=== PATIENT | female | born 1990 | race Caucasian/White ===

== ENCOUNTER 2016-09-02 12:09 | Emergency (ER) | payer MEDICAID ==
[2016-09-02 13:19] LABS: % IMMATURE GRANULYOCYTES 0.3 % (0.0-1.1); ABSOLUTE IMMATURE GRANULOCYTES 0.02 10^3/uL (0.00-0.10); ADD DIFF? NO; ADD MORPH? NO; ADD SCAN? NO; ATYPICAL LYMPHOCYTE FLAG 30 (0-99); FRAGMENT RBC FLAG 30 (0-99); HEMATOCRIT 41.2 % (38.0-47.0); HEMOGLOBIN 14.1 g/dL (12.6-16.3); LEFT SHIFT FLG 0 (0-99); LIPEMIA HEMOLYSIS FLAG 90 (0-99); MEAN CELL HEMOGLOBIN 30.1 pg (27.9-34.1); MEAN CELL HEMOGLOBIN CONCENTR. 34.2 g/dL (32.4-36.7); MEAN PLATELET VOLUME 10.6 fL (8.7-11.7); PLATELET CLUMPS FLAG 20 (0-99); PLATELET COUNT 248 10^3/uL (150-400); RED BLOOD CELL COUNT 4.68 10^6/uL (4.18-5.33); RED CELL DISTRIBUTION WIDTH 12.5 % (11.5-15.2)
[2016-09-02 13:38] LABS: ANION GAP 14 mEq/L (8-16); CALCIUM 10.3 mg/dL (8.5-10.4); CARBON DIOXIDE 19 mEq/l (22-31); CHLORIDE 105 mEq/L (97-110); CREATININE 0.7 mg/dL (0.6-1.0); GLOMERULAR FILTRATION RATE > 60; GLUCOSE 91 mg/dL (70-100); POTASSIUM 4.2 mEq/L (3.5-5.2); SODIUM 138 mEq/L (134-144)
[2016-09-02 14:10] LABS: COLOR RED; LEUKOCYTE ESTERASE,URINE NEGATIVE (NEGATIVE); NITRITE,URINE NEGATIVE (NEGATIVE)
[2016-09-02 14:25] VITALS: RESP 16; O2SAT 100
[2016-09-02 14:25] LABS: RBC,URINE 50-182 /hpf (0-3); WBC,URINE 50-182 /hpf (0-3)
--- NOTE | 2016-09-02 15:05 | EDPHY ---
H & P Stated Complaint: Spotting today;LMP 07/27/16;+ home preg test Time Seen by Provider: 09/02/16 12:47 HPI/ROS: CHIEF COMPLAINT: vaginal bleeding, 5 weeks HISTORY OF PRESENT ILLNESS: 26-year-old female presents to the emergency department complaining of lower abdominal cramping and vaginal bleeding. Patient's last menstrual period was July 27. She has had 2 positive home tests. Patient reports yesterday evening she developed lower abdominal cramping, this morning when she woke up she had more abdominal cramping and vaginal bleeding with clots. On arrival to the emergency department the patient reports her vaginal bleeding and cramping has lessened. She reports urinary frequency, no urgency or dysuria, she denies fevers. No nausea or vomiting. REVIEW OF SYSTEMS: A comprehensive 10 point review of systems is otherwise negative aside from elements mentioned in the history of present illness. Source: Patient Exam Limitations: No limitations - Personal History LMP (Females 10-55): Current Tetanus Diphtheria and Acellular Pertussis (TDAP): Yes - Medical/Surgical History Other PMH: . anxiety - Social History Smoking Status: Never smoked - Physical Exam Exam: Physical Exam Gen: Alert and Oriented, NAD HEENT: PERRL, moist mucous membranes NECK: no meningismus CV: regular rate and regular rhythm PULM: CTAB, no wheezes ABDOMEN: soft, non tender to palpation, BS present BACK: No CVA tenderness NEURO: Neurologically grossly intact EXTREMITIES: normal appearing SKIN: no rash or break in skin on exposed skin PSYCH: answers questions appropriately. Constitutional: Initial Vital Signs Temperature (C) 36.7 C 09/02/16 12:11 Heart Rate 98 09/02/16 12:11 Respiratory Rate 18 09/02/16 12:11 Blood Pressure 144/81 H 09/02/16 12:11 O2 Sat (%) 99 09/02/16 12:11 O2 Delivery Mode Room Air Allergies/Adverse Reactions: peanut Allergy (Mild, Verified 09/02/16 12:15) vomits Home Medications: Medication Instructions Recorded Cephalexin [Keflex] 500 mg PO BID 7 Days 09/02/16 clonazePAM [Klonopin (*)] 0.5 mg PO 09/02/16 Medical Decision Making - Diagnostics Imaging: Discussed imaging studies w/ rounder hand Radiologist ED Course/Re-evaluation: IV established, CBC, chemistry panel, quantitative HCG and OB ultrasound ordered. Urine dip positive in the emergency department. CBC and chemistry panel are unremarkable, quantitative HCG is 3660. Reviewing old records the patient is Rh positive. Urinalysis shows negative nitrates, negative leukocyte esterase, 50-182 RBC, 50-182 WBC. I will treat her with Keflex for a possible urinary tract infection. OB ultrasound shows Impression: 1. Irregular fluid collection within the thickened endometrial canal probably related to failure versus localized intrauterine fluid collection. Consider follow-up beta hCG. 2. Hemorrhagic corpus luteum cyst suspected left ovary. Patient has normal vital signs, I have discussed the findings with the patient. She agrees to follow up with OBGYN in 48 hours for repeat quantitative HCG. She will be discharged with a prescription for Keflex. Patient is given strict return precautions for increased vaginal bleeding, lightheadedness, any other questions or concerns. Differential Diagnosis: Diagnosis considered but not limited to miscarriage, threatened miscarriage, menstruation, ectopic . - Data Points Laboratory Results: Laboratory Results 09/02/16 12:50 09/02/16 12:50 Microbiology Results: MICROBIOLOGY 09/02/16 13:30 Urine,Clean Catch Urine Culture - Preliminary [place] Types Departure - Departure Disposition: Home, Routine, Self-Care Clinical Impression: Miscarriage Condition: Good Instructions: Miscarriage (ED) Additional Instructions: Follow-up with your OBGYN in 48 hours for repeat quantitative HCG. Call today to schedule this appointment. Take your antibiotics as prescribed for urinary tract infection. Return to the emergency department for any increased vaginal bleeding, new symptoms or concerns. Referrals: [facility] [Provider Group] - As per Instructions Prescriptions: Cephalexin [Keflex] 500 mg PO BID 7 Days
[2016-09-02 15:39] VITALS: BP 119/73; PULSE 92; TEMP 98.4
== END 2016-09-02 15:25 | disposition home or self-care (01) ==
DX: O03.9 Complete or unspecified spontaneous abortion without complication (principal); Z3A.01 Less than 8 weeks gestation of pregnancy; Z91.010 Allergy to peanuts

== ENCOUNTER → 2017-06-28 | Outpatient (CLI) | payer MEDICAID | LOC: FIMAGING 11:04 | PROVIDERS: ATTEND Obstetrics & Gynecology | DX: O99.341 Other mental disorders complicating pregnancy, first trimester (principal); F41.9 Anxiety disorder, unspecified; Z3A.12 12 weeks gestation of pregnancy ==

== ENCOUNTER → 2017-08-22 | Outpatient (CLI) | payer MEDICAID | LOC: FIMAGING 11:40 | PROVIDERS: ATTEND Obstetrics & Gynecology | DX: O35.8XX0 Maternal care for other (suspected) fetal abnormality and damage, not applicable or unspecified (principal); O99.342 Other mental disorders complicating pregnancy, second trimester; F41.9 Anxiety disorder, unspecified; Z3A.19 19 weeks gestation of pregnancy ==

== ENCOUNTER → 2017-11-07 | Outpatient (CLI) | payer MEDICAID | LOC: FIMAGING 13:55 | PROVIDERS: ATTEND Obstetrics & Gynecology | DX: Z34.93 Encounter for supervision of normal pregnancy, unspecified, third trimester (principal); F41.9 Anxiety disorder, unspecified; Z3A.30 30 weeks gestation of pregnancy ==

== ENCOUNTER → 2017-12-20 | Outpatient (CLI) | payer MEDICAID | LOC: FIMAGING 13:56 | PROVIDERS: ATTEND Obstetrics & Gynecology | DX: O09.893 Supervision of other high risk pregnancies, third trimester (principal); Z03.74 Encounter for suspected problem with fetal growth ruled out; Z3A.37 37 weeks gestation of pregnancy ==

== ENCOUNTER 2018-01-06 06:00 | Inpatient (IN) | payer MEDICAID ==
[2018-01-06] MEDS ORDERED: LR 1,000 ML IV PRN (06:33)
[2018-01-06] MEDS ORDERED: OXYTOCIN/RINGERS LACTATE 500 ML IV SCH (06:33)
[2018-01-06] MEDS ORDERED: LR 500 ML IV PRN (06:33)
[2018-01-06] MEDS ORDERED: IBUPROFEN 600 MG TAB PO PRN (06:33)
[2018-01-06] MEDS ORDERED: OXYTOCIN/RINGERS LACTATE 1,000 ML IV PRN (06:33)
[2018-01-06] MEDS ORDERED: OLIVE OIL 118 ML BTL MISC PRN (06:33)
[2018-01-06] MEDS ORDERED: EPSOM SALT 454 GM TP PRN (06:33)
[2018-01-06] MEDS ORDERED: TERBUTALINE SULFATE 1 MG/ML VIAL IV PRN (06:33)
[2018-01-06] MEDS ORDERED: MISOPROSTOL 200 MCG TAB PR PRN (06:33)
[2018-01-06] MEDS ORDERED: LIDOCAINE 1% 300 MG/30 ML SDV SC PRN (06:33)
[2018-01-06] MEDS ORDERED: TERBUTALINE SULFATE 1 MG/ML VIAL ONE (07:02)
[2018-01-06] MEDS ORDERED: OXYTOCIN 10 UNIT/ML VIAL ONE (07:02)
[2018-01-06] MEDS ORDERED: MISOPROSTOL 200 MCG TAB ONE (07:02)
[2018-01-06] MEDS ORDERED: OLIVE OIL 118 ML BTL ONE (07:02)
[2018-01-06] MEDS ORDERED: AMMONIA AROMATIC 1 EACH AMP IH ONE (07:02)
[2018-01-06] MEDS ORDERED: LIDOCAINE 1% 300 MG/30 ML SDV ONE (07:02)
[2018-01-06 07:04] LABS: PLATELET COUNT 225 10^3/uL (150-400)
[2018-01-06] MEDS ORDERED: fentaNYL 2MCG/ML/BUP 0.1% RTU 100 ML BAG EP ONE (10:07)
[2018-01-06] MEDS ORDERED: PHENYLEPHRINE HCL 100 MCG/ML SYR ONE (10:07)
[2018-01-06] MEDS ORDERED: BUPIVACAINE 0.25% 30 ML SDV ONE (10:07)
[2018-01-06] MEDS ORDERED: PHENYLEPHRINE HCL 100 MCG/ML SYR IVP PRN (10:39)
[2018-01-06] MEDS ORDERED: NALOXONE HCL 0.4 MG/ML INJ IVP PRN (10:39)
[2018-01-06] MEDS ORDERED: ONDANSETRON 4 MG/2 ML VIAL IVP PRN (10:39)
--- NOTE | 2018-01-06 10:43 | PREANESOB ---
Obstetric Pre-Anesthesia Info - General Info Proposed Procedure: JOSE : 3 Para: 1 SHY: 01/10/18 Gestational Age: 39 week(s) and 3 day(s) - Info Status: Full Term FHR Pattern: Reassuring - Labor Status Labor Epidural: Yes Anesthesia Allergies/Adverse Reactions: Allergy/AdvReac Type Severity Reaction Status Date / Time peanut Allergy Mild vomits Verified 01/06/18 06:34 Home Medications: Medication Instructions Recorded Cephalexin [Keflex] 500 mg PO BID 7 Days cap 09/02/16 clonazePAM [Klonopin (*)] 0.5 mg PO 09/02/16 Visit Medications: Generic Name Dose Route Start Last Admin Trade Name Freq PRN Reason Stop Dose Admin Lactated Ringer's 1,000 mls @ 0 mls/hr 01/06/18 06:33 01/06/18 07:36 Lr IV 01/07/18 06:32 1,000 mls PRN PRN Administration SEE PROTOCOL CONDITIONS Protocol Per Protocol Lactated Ringer's 500 mls @ 500 mls/hr 01/06/18 06:33 Lr IV PRN PRN Maternal Hypotension Oxytocin/Lactated Ringer's 1,000 mls @ 125 mls/hr 01/06/18 06:33 Pitocin 20 Units/Lr (Premix) IV PRN PRN Post bleeding Oxytocin/Lactated Ringer's 500 mls @ 0 mls/hr 01/06/18 06:33 01/06/18 07:36 Pitocin 30 Units/Lr (Premix) IV 07/05/18 06:32 500 mls CONT SARAH Administration Protocol Per Protocol Ibuprofen 600 mg 01/06/18 06:33 Motrin PO ONCE PRN post , pain Lidocaine HCl 300 mg 01/06/18 06:33 Lidocaine Hcl 1% SC 07/05/18 06:32 ONCE PRN episiotomy Magnesium Sulfate 454 gm 01/06/18 06:33 Epsom Salt TP 07/05/18 06:32 Q1H PRN perineal discomfort Misoprostol 800 - 1,000 mcg 01/06/18 06:33 Cytotec RI ONCE PRN Vaginal Atony/Bleeding [place] Oil 118 ml 01/06/18 06:33 Sweet Oil MISC 07/05/18 06:32 ONCE PRN perineal massage Terbutaline Sulfate 0.25 mg 01/06/18 06:33 Brethine IV 07/05/18 06:32 ONCE PRN Tachysystole Discontinued Medications Generic Name Dose Route Start Last Admin Trade Name Nelson PRN Reason Stop Dose Admin Ammonia (Aromatic Spirit) Confirm 01/06/18 07:02 Ammonia Aromatic Administered 01/06/18 07:03 Dose 1 each IH .STK-MED ONE Bupivacaine HCl Confirm 01/06/18 10:07 Sensorcaine 0.25% Sdv Administered 01/06/18 10:08 Dose 30 ml .ROUTE .STK-MED ONE Fentanyl/Bupivacaine HCl Confirm 01/06/18 10:07 Fentanyl/Bupivacaine/Ns 2 Mcg/Ml 0.1% (Premix Administered 01/06/18 10:08 Dose 100 ml EP .STK-MED ONE Lidocaine HCl Confirm 01/06/18 07:02 Lidocaine Hcl 1% Administered 01/06/18 07:03 Dose 300 mg .ROUTE .STK-MED ONE Misoprostol Confirm 01/06/18 07:02 Cytotec Administered 01/06/18 07:03 Dose 1,000 mcg .ROUTE .STK-MED ONE [place] Oil Confirm 01/06/18 07:02 Sweet Oil Administered 01/06/18 07:03 Dose 118 ml .ROUTE .STK-MED ONE Oxytocin Confirm 01/06/18 07:02 Pitocin Administered 01/06/18 07:03 Dose 40 unit .ROUTE .STK-MED ONE Phenylephrine HCl Confirm 01/06/18 10:07 Neosynephrine Administered 01/06/18 10:08 Dose 1,000 mcg .ROUTE .STK-MED ONE Terbutaline Sulfate Confirm 01/06/18 07:02 Brethine Administered 01/06/18 07:03 Dose 1 mg .ROUTE .STK-MED ONE - Anesthesia History Response to Local Anesthetics: Normal Anesthesia & Operative History: No Prior Problems Family Anesthesia History: Negative - Vital Signs Height/Weight (Nursing): Height 175.26 cm Weight 86.183 kg - Focused Exam Neck exam: FROM Mallampati Score: Class 1 Mouth exam: normal dental/mouth exam Pulmonary: no respiratory distress Cardiovascular: regular rate and rhythym Labs: 01/06/18 06:48 01/06/18 06:45 Patient ABO/Rh A POSITIVE 01/06/18 06:48 Uric Acid 4.4 mg/dL (2.5-6.8) 01/06/18 06:45 Total Bilirubin 0.5 mg/dL (0.1-1.4) 01/06/18 06:45 Conjugated Bilirubin 0.3 mg/dL (0.0-0.5) 01/06/18 06:45 Unconjugated Bilirubin 0.2 mg/dL (0.0-1.1) 01/06/18 06:45 AST 22 IU/L (14-46) 01/06/18 06:45 ALT 32 IU/L (9-52) 01/06/18 06:45 Lactate Dehydrogenase 542 IU/L (313-618) 01/06/18 06:45 - Plan Anesthetic Plan: JOSE Consent Signed and on Chart: Yes Patient/Guardian Understands and Agrees to Plan: Yes
[2018-01-06] MEDS ORDERED: LR 500 ML IV SCH (11:00)
[2018-01-06] MEDS ORDERED: fentaNYL 2MCG/ML/BUP 0.1% RTU 100 ML EP SCH (11:00)
[2018-01-06] MEDS ORDERED: CALCIUM CARBONATE 500 MG CHEWABLE TAB PO PRN (11:12)
--- NOTE | 2018-01-06 11:34 | PDGENHP ---
History and Physical - Chief Complaint IOL, elective - History of Present Illness 27 yo today at 39w3d by SHY of 01/10/18 (LMP c/w 8 wk US) here for elective IOL. First baby girl Daylin 4 yrs ago was pretty fast labor, pushed for an hour with [id number] baby. Dad (Ronnie) did have a seizure right after Daylin 's delivery and has since gained the diagnosis of epilepsy - seems to only come up during times of stress and dehydration/fatigue/illness, etc. Drea was 3cm in clinic earlier this week. GBS negative. complicated by anxiety d/o on Klonopin daily PRN, and baby had echogenic bowel and bilateral pyelectasis at 20 wks, both resolved. CMV and Toxo IgG/M both negative. Labs: A pos Antibody neg RPR NR Hep B neg Rubella immune HIV neg Standard neg Varicella immune GC/C neg GBS negative History Information - Allergies/Home Medication List Allergies/Adverse Reactions: peanut Allergy (Mild, Verified 01/06/18 06:34) vomits Home Medications: clonazePAM [Klonopin (*)] 0.5 mg PO 09/02/16 [Last Taken 01/06/18 06:00] I have personally reviewed and updated: family history, medical history, social history, surgical history - Past Medical History Additional medical history: Anxiety on meds (Klonopin daily PRN) - Surgical History Reports: no pertinent surgical hx - Family History Positive for: non-pertinent - Social History Smoking Status: Never smoked Alcohol Use: None Review of Systems Review of Systems: ROS: 10pt was reviewed & negative except for what was stated in HPI & below Physical Exam Physical Exam: Alert, pleasant, NAD. Belly soft, non-tender, longitudinal lie. FHR 130s, mod mi, accels present, no decels. Lab Data & Imaging Review 01/06/18 06:48 01/06/18 06:45 WBC 10.31 10^3/uL (3.80-9.50) H 01/06/18 06:48 RBC 4.49 10^6/uL (4.18-5.33) 01/06/18 06:48 Hgb 13.3 g/dL (12.6-16.3) 01/06/18 06:48 Hct 39.4 % (38.0-47.0) 01/06/18 06:48 MCV 87.8 fL (81.5-99.8) 01/06/18 06:48 MCH 29.6 pg (27.9-34.1) 01/06/18 06:48 MCHC 33.8 g/dL (32.4-36.7) 01/06/18 06:48 RDW 13.7 % (11.5-15.2) 01/06/18 06:48 Plt Count 225 10^3/uL (150-400) 01/06/18 06:48 MPV 11.0 fL (8.7-11.7) 01/06/18 06:48 Neut % (Auto) 69.2 % (39.3-74.2) 01/06/18 06:48 Lymph % (Auto) 22.2 % (15.0-45.0) 01/06/18 06:48 [place] % (Auto) 7.2 % (4.5-13.0) 01/06/18 06:48 Eos % (Auto) 0.7 % (0.6-7.6) 01/06/18 06:48 Baso % (Auto) 0.1 % (0.3-1.7) L 01/06/18 06:48 Nucleat RBC Rel Count 0.0 % (0.0-0.2) 01/06/18 06:48 Absolute Neuts (auto) 7.14 10^3/uL (1.70-6.50) H 01/06/18 06:48 Absolute Lymphs (auto) 2.29 10^3/uL (1.00-3.00) 01/06/18 06:48 Absolute Monos (auto) 0.74 10^3/uL (0.30-0.80) 01/06/18 06:48 Absolute Eos (auto) 0.07 10^3/uL (0.03-0.40) 01/06/18 06:48 Absolute Basos (auto) 0.01 10^3/uL (0.02-0.10) L 01/06/18 06:48 Absolute Nucleated RBC 0.00 10^3/uL (0-0.01) 01/06/18 06:48 Immature Gran % 0.6 % (0.0-1.1) 01/06/18 06:48 Immature Gran # 0.06 10^3/uL (0.00-0.10) 01/06/18 06:48 BUN 6 mg/dL (7-23) L 01/06/18 06:45 Creatinine 0.6 mg/dL (0.6-1.0) 01/06/18 06:45 Estimated GFR > 60 01/06/18 06:45 Uric Acid 4.4 mg/dL (2.5-6.8) 01/06/18 06:45 Total Bilirubin 0.5 mg/dL (0.1-1.4) 01/06/18 06:45 Conjugated Bilirubin 0.3 mg/dL (0.0-0.5) 01/06/18 06:45 Unconjugated Bilirubin 0.2 mg/dL (0.0-1.1) 01/06/18 06:45 AST 22 IU/L (14-46) 01/06/18 06:45 ALT 32 IU/L (9-52) 01/06/18 06:45 Lactate Dehydrogenase 542 IU/L (313-618) 01/06/18 06:45 Ur Random Creatinine 50.4 mg/dL 01/06/18 08:45 U Random Total Protein 12 mg/dL (0-11) H 01/06/18 08:45 Patient ABO/Rh A POSITIVE 01/06/18 06:48 Antibody Screen NEGATIVE 01/06/18 06:48 Assessment & Plan Assessment: 27 yo at 39w3d here for elective IOL. IOL: Pitocin this AM, AROM if needed. GBS negative. Cont Klonopin PRN. JM
[2018-01-06] MEDS ORDERED: DOCUSATE SODIUM 100 MG CAP PO PRN (13:04)
[2018-01-06] MEDS ORDERED: HYDROCORTISONE 0.5% CREAM TP PRN (13:04)
[2018-01-06] MEDS ORDERED: oxyCODONE IR 5 MG TAB PO PRN (13:04)
[2018-01-06] MEDS ORDERED: SIMETHICONE 80 MG TAB CHEW PO PRN (13:04)
--- NOTE | 2018-01-06 13:04 | OBDEL ---
Info Type: Vaginal Presentation at Delivery: Vertex L&D Analgesia/Anesthesia Type: Epidural GBS+: No Intrapartum Medications: Generic Name Dose Route Start Last Admin Trade Name Freq PRN Reason Stop Dose Admin Calcium Carbonate 500 mg 01/06/18 11:12 01/06/18 11:25 Tums PO 07/05/18 11:11 500 mg TID PRN Administration Indigestion Lactated Ringer's 1,000 mls @ 0 mls/hr 01/06/18 06:33 01/06/18 07:36 Lr IV 01/07/18 06:32 1,000 mls PRN PRN Administration SEE PROTOCOL CONDITIONS Protocol Per Protocol Oxytocin/Lactated Ringer's 500 mls @ 0 mls/hr 01/06/18 06:33 01/06/18 07:36 Pitocin 30 Units/Lr (Premix) IV 07/05/18 06:32 500 mls CONT SARAH Administration Protocol Per Protocol Ondansetron HCl 4 mg 01/06/18 10:39 01/06/18 11:36 Zofran IVP 01/07/18 10:38 4 mg Q4HRS PRN Administration Nausea/Vomiting, Can't Take PO Indications for Delivery: Elective Vaginal Delivery - Delivery Provider Delivery Physician/CNM: Rohan Angulo - Labor and Delivery Onset of Contractions Date: 01/06/18 Onset of Contractions Time: 06:00 Onset of Contractions Type: Augmented Rupture of Membranes Type: Artificial Amniotic Fluid Color: Meconium Stained Non-surgical Procedures: Amniotomy Laceration: 2nd Degree Repair: 3-0 Vaginal Sponge Count Correct: Yes Vaginal Needle Count Correct: Yes Vaginal Sweep Performed: Yes EBL: 300 Delivery Events: None - Medications Labor Augmentation/Induction Methods Used: Pitocin Labor Augmentation/Induction Indication: Elective [place] Data SHY: 01/10/18 Gestational Age: 39 week(s) and 4 day(s) [place] Delivery Date: 01/06/18 Delivery Time: 12:37 Sex of Infant: Female [place]ayer Weight (gm): 2948 g Score (1 Min): 8 Score (5 Min): 9 Shoulder Dystocia Time Head Delivered: 12:37 Time Body Delivered: 12:37 ICD10 Worksheet Patient Problems: Problems Problem Status Onset Anxiety Acute Meconium in amniotic fluid affecting management of mother, delivered Acute (spontaneous vaginal delivery) Acute
[2018-01-06] MEDS ORDERED: clonazePAM 0.5 MG TAB PO PRN (13:05)
[2018-01-06] MEDS: IBUPROFEN 600 MG TAB PO SCH ×2 (15:57→21:56)
[2018-01-06] MEDS: ACETAMINOPHEN 325 MG TAB PO SCH ×2 (18:14→21:26)
[2018-01-07] MEDS: ACETAMINOPHEN 325 MG TAB PO SCH ×3 (02:02→18:17)
[2018-01-07] MEDS: IBUPROFEN 600 MG TAB PO SCH ×2 (04:45→11:05)
[2018-01-07 10:01] VITALS: BP 120/87
--- NOTE | 2018-01-07 11:09 | OBPP ---
Progress Note Assessment/Plan: Assessment: PPD 1 s/p Plan: desires d/c home 01/07/18 11:02 Subjective/ Course: 01/07/18 11:09 Pt doing great. BF well - getting some cramps, uterus feels sore from after delivery. urinating fine. bld is lessening. desires d/c Objective: 01/07/18 05:14 01/06/18 06:45 Patient ABO/Rh A POSITIVE 01/06/18 06:48 Uric Acid 4.4 mg/dL (2.5-6.8) 01/06/18 06:45 Total Bilirubin 0.5 mg/dL (0.1-1.4) 01/06/18 06:45 Conjugated Bilirubin 0.3 mg/dL (0.0-0.5) 01/06/18 06:45 Unconjugated Bilirubin 0.2 mg/dL (0.0-1.1) 01/06/18 06:45 AST 22 IU/L (14-46) 01/06/18 06:45 ALT 32 IU/L (9-52) 01/06/18 06:45 Lactate Dehydrogenase 542 IU/L (313-618) 01/06/18 06:45 Temp Pulse Resp BP Pulse Ox 36.2 C 99 17 120/87 H 98 01/07/18 09:30 01/07/18 09:30 01/07/18 09:30 01/07/18 09:30 01/07/18 09:30 Uterine Position/Fundal Height: Umbilicus -1 Uterine Tone: Firm Physical Exam - Physical Exam Abdomen: non-tender (approp post delivery), soft, other (FF at umb -1) Extremities: non-tender, pedal edema (mild) Skin: normal color, warm/dry Neuro/Psych: alert, normal mood/affect
--- NOTE | 2018-01-07 11:13 | OBGCSDC ---
General Delivery Information - General Info : 3 Para: 2 Abortions: 1 Type: Vaginal L&D Analgesia/Anesthesia Type: Epidural Admission Date: 01/06/18 Labs: Patient ABO/Rh A POSITIVE 01/06/18 06:48 Hct 37.8 % (38.0-47.0) L 01/07/18 05:14 - Hospital Course : 01/07/18 11:09 Pt doing great. BF well - getting some cramps, uterus feels sore from after delivery. urinating fine. bld is lessening. desires d/c Vaginal - Delivery Provider Delivery Physician/CNM: Rohan Angulo - Diagnosis Labor: Augmented Rupture of Membranes Type: Artificial Amniotic Fluid Color: Meconium Stained Laceration: 2nd Degree Repair: 3-0 Delivery Events: None - Procedures Non-surgical Procedures: Amniotomy - Delivery Non-surgical Procedures: Amniotomy EBL: 300 Data SHY: 01/10/18 Gestational Age: 39 week(s) and 4 day(s) [place] Delivery Date: 01/06/18 Delivery Time: 12:37 Sex of : Female Weight (gm): 2948 g Score (1 Min): 8 Score (5 Min): 9 Discharge Information - Discharge Information Condition: Good Instruction/Follow Up: See Instruction Sheet, Two Weeks (2-4 wks with therapist) , Six Weeks (with JM)
--- NOTE | 2018-01-07 19:34 | POSTANESTH ---
Post Anesthetic Evaluation Cardiovascular Status: Normal, Stable Respiratory Status: Normal, Stable Level of Consciousness/Mental Status: Can Participate in Eval Pain Control: Adequate, Prn Tx Ordered Nausea/Vomiting Control: Adequate, Prn Tx Ordered Complications Possibly Related to Anesthesia: None Noted Notes: Patient discharged earlier today. Contacted by phone: she reports good analgesia from labor JOSE, denies residual effects from JOSE, headache. Satisfied with anesthesia care.
== END 2018-01-07 14:35 | disposition home or self-care (01) | DRG 560 ==
LOC: FLD 06:25 → FOB 16:08
PROVIDERS: ADMIT Obstetrics & Gynecology; ATTEND Obstetrics & Gynecology
DX: O13.3 Gestational [pregnancy-induced] hypertension without significant proteinuria, third trimester (principal); O70.1 Second degree perineal laceration during delivery; O77.0 Labor and delivery complicated by meconium in amniotic fluid; Z3A.39 39 weeks gestation of pregnancy; Z37.0 Single live birth
CPT/HCPCS: J2370; J2405; J2590; J3105